=== PATIENT | male | born 1960 | race Caucasian/White ===

== ENCOUNTER 2021-11-17 21:02 | Emergency (ER) | payer OTHER, MEDICARE ==
[~2021-11-17 21:02] MED LIST: APIX5TAB3 PO; ASPI81TA52 PO; HYDR-3965 PO
== END 2021-11-17 22:02 | disposition left against medical advice (07) ==
LOC: ER 21:03
DX: Z53.21 Procedure and treatment not carried out due to patient leaving prior to being seen by health care provider (principal)

== ENCOUNTER 2021-11-25 08:23 | Inpatient (IN) | payer OTHER ==
[~2021-11-25] VITALS: Ht 124.5 cm; Wt 81.6 kg
[2021-11-25] VITALS (13 sets, daily range): BP systolic 101–169; BP diastolic 52–88
[~2021-11-25 08:23] MED LIST changes: -APIX5TAB3 PO; +APIX5TAB5 PO; -ASPI81TA52 PO; -HYDR-3965 PO; +cefazolin/dext.iso 2gm/50ml IV ONE; +famotidine 20mg tablet PO ONE; +ringers solution, lacted 1,000 ML IV SCH
[2021-11-25 10:23] LABS: BASOPHILS # (AUTO) 0.1 X10'3 (0-0.2); EOSINOPHILS # (AUTO) 0.2 X10'3 (0-0.9); MEAN CORPUSCULAR VOLUME 81.8 FL (78-98); MONOCYTES # (AUTO) 0.8 X10'3 (0-0.9); NEUTROPHILS # (AUTO) 5.4 X10'3 (1.8-7.7)
[2021-11-25 10:24] LABS: BASOPHILS % (AUTO) 1.2 % (0-1); EOSINOPHILS % (AUTO) 2.9 % (0-6); LYMPHOCYTES # (AUTO) 1.5 X10'3 (1.1-4.8); LYMPHOCYTES % (AUTO) 18.8 % (21-51); MEAN CORPUSCULAR HEMOGLOBIN 26.1 PG (27.0-31.0); MEAN CORPUSCULAR HGB CONC 31.9 g/dL (33.0-36.5); MEAN PLATELET VOLUME 6.9 FL (7.4-10.4); MONOCYTES % (AUTO) 9.5 % (2-12); NEUTROPHILS % (AUTO) 67.6 % (42-75); PRE OP PLATELET COUNT 796 X10'3 (140-440); RED BLOOD COUNT 3.67 X10'6 (4.70-6.10); RED CELL DISTRIBUTION WIDTH 17.6 % (11.5-14.5)
[2021-11-25 10:27] LABS: PRE OP HEMOGLOBIN 9.6 g/dL (14.0-17.9)
[2021-11-25 10:36] LABS: PRE OP PROTIME 10.8 SECONDS (9.0-12.0)
[2021-11-25 10:46] LABS: ALBUMIN 3.1 G/DL (3.4-5.0); ALBUMIN/GLOBULIN RATIO 0.7 (1.1-1.5); ALKALINE PHOSPHATASE 113 IU/L (46-116); BLOOD UREA NITROGEN 15 MG/DL (7-18); BUN/CREATININE RATIO 27.8 (5.4-32.0); CALCIUM 8.8 MG/DL (8.5-10.1); CHLORIDE 105 MMOL/L (99-107); CREATININE 0.54 MG/DL (0.60-1.10); PRE OP ALT 19 U/L (30-65); PRE OP ANION GAP 8 (8-16); PRE OP AST 12 U/L (10-37); PRE OP BILIRUB, TOTAL 0.3 MG/DL (0.0-1.0); PRE OP GLUCOSE 95 MG/DL (70-104); PRE OP POTASSIUM 4.7 MMOL/L (3.4-5.1); PRE OP SODIUM 141 MMOL/L (135-145); TOTAL CARBON DIOXIDE 27.7 MMOL/L (24-32); TOTAL PROTEIN 7.4 G/DL (6.4-8.2); eGFR > 90 ML/MIN
[2021-11-25] MEDS ORDERED: morphine 4 MG/ML inj SYRINge IV PRN (15:35)
[2021-11-25] MEDS ORDERED: hydrALAZINE 20mg/ml inj. IV PRN (15:35)
[2021-11-25] MEDS ORDERED: labetalol 20mg/4ml (5mg/ml) syringe IV PRN (15:35)
[2021-11-25] MEDS ORDERED: morphine 2 MG/ML inj. syringe IV PRN (15:35)
[2021-11-25] MEDS ORDERED: ondansetron/PF 4mg/2ml inj IV PRN (15:35)
[2021-11-25] MEDS ORDERED: ringers solution, lacted 1,000 ML IV SCH (15:35)
[2021-11-25] MEDS ORDERED: fentaNYL/PF 50MCG/1 ML 2ML syringe IV PRN ×2 (15:35)
--- NOTE | 2021-11-25 17:11 | NUR ---
Received from OR via [facility] , accompanied by Anesthesiologist DR. HERNÁNDEZ and report given by Anesthesiolgist. 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
--- NOTE | 2021-11-25 17:34 | NUR ---
Patient in room PAS IN 901. I have received report from Neisha BEALacute care clinical nurse specialist and had the opportunity to ask questions and assume patient care.
--- NOTE | 2021-11-25 17:41 | NUR ---
Report called to receiving nurse.GUILHERME BEAL Transferred via [facility] TO SURGICAL Belong[facility] . Special Issues communicated to receiving nurse. GAVE REORT TO NURSE. ANNA. PATIENT MEETS DISCHARGE CRITERIA. Addendum: 11/25/21 at 1752 by Neisha Portillo RN Amended: Links added.
--- NOTE | 2021-11-25 18:26 | NUR ---
Problems reprioritized. Patient report given, questions answered & plan of care reviewed with Amalia BEAL traveler.
[2021-11-26] VITALS: BP 109/59
[2021-11-26 04:00] VITALS: BP 112/57
[2021-11-26 07:00] VITALS: BP 100/56
[2021-11-26] MEDS ORDERED: HYDROcodone/acetaminophen 10/325mg tab PO PRN (09:10)
--- NOTE | 2021-11-26 12:02 | NUR ---
MD made aware that pt. is tachycardic at 105 and temp of 99.2 aux. Surgeon want atb. ordered. [facility] until he can further assess if pt. will get his appropriate meds.
--- NOTE | 2021-11-26 12:17 | NUR ---
Call from surgical unit charge nurse Heaven who is requesting per Dr Benjie hardy the NPWT dressing to the patient's R BKA site be changed as he is in house now. Arrived in the room and pt is agreeable to the dressing change and NPWT turned off, removed one black foam, wound bed is 95% red granulation tissue, wound edges are attached and no sx of infection noted. Wound cleansed then trip draped then placed one black foam, seal achieved @ 125 mmhg low continuous suction alarm on audible, canister change done, he tolerated well. He is going to be discharge today and will f/u in the [facility] wound clinic. He has a stump sock to his left AKA site there is noted to be strike through drainage that is dry, pt is c/o of some continued pain to the site and was previously medicated by primary nurse. Educated him on f/u w/ HH as well as to keep appt that will be made for him for outpatient wound clinic as well as s sx of infection and how to contact [facility] after hours.
--- NOTE | 2021-11-26 14:39 | NUR ---
DISCHARGE NOTE: Discussed discharge paperwork with pt. IV DC'd, cannula intact, no s/sx bleeding noted. Discussed f/u care with PCP, and surgeon, and wound care. Pt. provided with contact information. Wound care clinic appointment set up at 1030 on Tuesday. Medications and possible ASE discussed with pt. Spoke with Benjie while rounding on floor and he states his office called in an antibiotic and pain management medication. Pt. aware[facility] Pt. supplied with 3 days of wound care supplies and then verified with CM that pt will have wound care and home health. Pt. gathered all of his belongings and dressed himself. His is here. Pt. L stump redressed by primary RN and new stump sock provided and wound care changed wound vac dressing.
== END 2021-11-26 13:55 | disposition home or self-care (01) | DRG 498 ==
LOC: PAS IN 08:23 → SUR 3N 19:15
PROVIDERS: ADMIT Surgery; ATTEND Surgery
PROC: 0QB70ZZ Excision of Left Upper Femur, Open Approach (ICD-10-PCS; principal; 2021-11-25 15:37)
DX: Z47.81 Encounter for orthopedic aftercare following surgical amputation (principal); G82.20 Paraplegia, unspecified; E78.5 Hyperlipidemia, unspecified; Z88.8 Allergy status to other drugs, medicaments and biological substances
CPT/HCPCS: 36415; 80053; 85025; 85610; 85730; 87635; 93005; A4618; A6222; A6253; A6449; A7000; G0378; J0690; J7120

== ENCOUNTER 2022-01-25 11:19 | Emergency (ER) | payer OTHER, MEDICARE ==
[~2022-01-25] VITALS: Ht 177.8 cm; Wt 77.3 kg
[~2022-01-25 11:19] MED LIST changes: +APIX5TAB3 PO; +FERR142T13 PO; -cefazolin/dext.iso 2gm/50ml IV ONE; -famotidine 20mg tablet PO ONE; -ringers solution, lacted 1,000 ML IV SCH
[2022-01-25 11:35] VITALS: BP 147/87
[2022-01-26] MEDS ORDERED: MULT-1085 PO (10:29)
[2022-01-26] MEDS ORDERED: ASCO-134 PO (10:29)
[2022-01-26] MEDS ORDERED: APIX5TAB3 PO (10:29)
[2022-01-26] MEDS ORDERED: DOCU100C40 PO (10:29)
[2022-01-28] MEDS ORDERED: LINE600T11 PO (09:20)
== END 2022-01-25 15:43 | disposition home or self-care (01) ==
LOC: ER 11:20
DX: T81.49XA Infection following a procedure, other surgical site, initial encounter (principal); M00.9 Pyogenic arthritis, unspecified; E78.00 Pure hypercholesterolemia, unspecified; Z86.718 Personal history of other venous thrombosis and embolism; Z88.8 Allergy status to other drugs, medicaments and biological substances; Z79.899 Other long term (current) drug therapy; Z88.2 Allergy status to sulfonamides; Y83.8 Other surgical procedures as the cause of abnormal reaction of the patient, or of later complication, without mention of misadventure at the time of the procedure; Y92.89 Other specified places as the place of occurrence of the external cause
CPT/HCPCS: 99281

== ENCOUNTER 2022-05-30 21:56 | Emergency (ER) | payer OTHER, MEDICARE ==
[~2022-05-30] VITALS: Ht 177.8 cm; Wt 79.5 kg
[~2022-05-30 21:56] MED LIST changes: -APIX5TAB5 PO; +ASCO-134 PO; +DOCU100C40 PO; -FERR142T13 PO; +MULT-1085 PO
[2022-05-30 22:45] LABS: ALANINE AMINOTRANSFERASE 20 U/L (12-78); ALBUMIN 3.1 G/DL (3.4-5.0); ALBUMIN/GLOBULIN RATIO 0.8 (1.1-1.5); ALKALINE PHOSPHATASE 89 IU/L (46-116); ANION GAP 11 (8-16); ASPARTATE AMINO TRANSFERASE 16 U/L (10-37); BILIRUBIN,TOTAL 0.6 MG/DL (0.1-1.0); BLOOD UREA NITROGEN 14 MG/DL (7-18); CALCIUM 8.6 MG/DL (8.5-10.1); CHLORIDE 104 MMOL/L (99-107); CREATININE 0.61 MG/DL (0.60-1.10); GLUCOSE 105 MG/DL (70-104); POTASSIUM 3.6 MMOL/L (3.5-5.1); SODIUM 138 MMOL/L (135-145); TOTAL CARBON DIOXIDE 23.1 MMOL/L (24-32); TOTAL PROTEIN 7.1 G/DL (6.4-8.2); eGFR > 90 ML/MIN
[2022-05-30 22:46] LABS: CLARITY,URINE CLEAR (Clear); GLUCOSE, URINE NEGATIVE (Neg); KETONES,URINE NEGATIVE (Neg); LEUKOCYTE ESTERASE ,URINE TRACE (Neg); NITRITES, URINE NEGATIVE (Neg); OCCULT BLOOD,URINE NEGATIVE (Neg); PROTEIN,URINE NEGATIVE (Neg); UROBILINOGEN,URINE 0.2 E.U/dL (0.2-1.0)
[2022-05-30 22:47] LABS: BASOPHILS % (AUTO) 0.4 % (0-1); EOSINOPHILS % (AUTO) 0.2 % (0-6); HEMOGLOBIN 12.8 g/dl (14.0-17.9); LYMPHOCYTES # (AUTO) 0.8 X10'3 (1.1-4.8); LYMPHOCYTES % (AUTO) 8.8 % (21-51); MEAN CORPUSCULAR HEMOGLOBIN 26.6 PG (27.0-31.0); MEAN CORPUSCULAR HGB CONC 32.7 g/dL (33.0-36.5); MEAN CORPUSCULAR VOLUME 81.3 FL (78-98); MEAN PLATELET VOLUME 8.5 FL (7.4-10.4); MONOCYTES # (AUTO) 0.6 X10'3 (0-0.9); MONOCYTES % (AUTO) 6.5 % (2-12); NEUTROPHILS # (AUTO) 7.8 X10'3 (1.8-7.7); NEUTROPHILS % (AUTO) 84.1 % (42-75); PLATELET COUNT 317 X10'3 (140-440); RED CELL DISTRIBUTION WIDTH 21.8 % (11.5-14.5); WHITE BLOOD COUNT 9.3 X10'3 (4.5-11.0)
[2022-05-30 22:51] LABS: COLOR,URINE STRAW (Yellow); UA COLLECTION TYPE FOLEY CATH
[2022-05-30 22:57] LABS: BACTERIA,URINE 1+ /HPF (Neg); MUCUS STRANDS NONE SEEN /LPF (Neg); RBC,URINE 0-2 /HPF (0-2); SQUAMOUS EPITHELIAL CELL,UR FEW /LPF (FEW); WBC,URINE 0-4 /HPF (0-4)
[2022-05-31 00:06] LABS: C-REACTIVE PROTEIN 2.82 MG/DL (0.0-0.5)
[2022-05-31] MEDS ORDERED: clindamycin 600mg/D5W 50ml 50 ML IV ONE (01:35)
[2022-05-31] MEDS ORDERED: ketorolac trometh. 30mg/ml inj. IV ONE (01:40)
[2022-05-31] MEDS ORDERED: acetaminophen 325mg tablet PO ONE (01:40)
[2022-05-31] MEDS ORDERED: CLIN150C8 PO (01:40)
[2022-05-31 02:36] VITALS: BP 129/78
== END 2022-05-31 04:00 | disposition home or self-care (01) ==
LOC: ER 21:57
DX: R50.9 Fever, unspecified (principal); Z20.822 Contact with and (suspected) exposure to COVID-19; R10.30 Lower abdominal pain, unspecified; E78.00 Pure hypercholesterolemia, unspecified; F17.200 Nicotine dependence, unspecified, uncomplicated; Z87.11 Personal history of peptic ulcer disease; Z85.9 Personal history of malignant neoplasm, unspecified; Z98.890 Other specified postprocedural states; Z88.1 Allergy status to other antibiotic agents; Z88.8 Allergy status to other drugs, medicaments and biological substances; Z79.2 Long term (current) use of antibiotics; Z79.899 Other long term (current) drug therapy
CPT/HCPCS: 36415; 71045; 73551; 80053; 81001; 83605; 84145; 85025; 86140; 87040; 87077; 87088; 87186; 87635; 96365; 96375; 99285; C9803; J1885; J3490

== ENCOUNTER 2025-07-12 22:48 | Emergency (ER) | payer OTHER, MEDICARE ==
[~2025-07-12] VITALS: Ht 111.8 cm; Wt 81.8 kg
[~2025-07-12 22:48] MED LIST changes: +CLIN-214 PO
[2025-07-12 22:55] VITALS: TEMP 98.6
--- NOTE | 2025-07-12 23:34 | Physician Documentation ---
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 The patient states pain was 8/10 sharp left-sided it has improved since he has been in the emergency room he states it is only slight on the left side now. He denies any fevers or chills. He denies any nausea vomiting or diarrhea. Patient has an AKA on the left and a BKA on the right. The the patient has a left-sided lower abdominal colostomy. Patient has a history of kidney stones Medication Reconciliation Allergies: Coded Allergies: sulfamethoxazole (Unverified Allergy, Unknown, 05/30/22) trimethoprim (Unverified Allergy, Unknown, 05/30/22) Uncoded Allergies: turnips (Allergy, Severe, 11/06/21) Scheduled Apixaban (Eliquis), 1 TAB PO Q12H, (Reported) Ascorbic Acid (Ascorbic Acid), 1 TAB PO BID, (Reported) Cefpodoxime Proxetil (Vantin), 1 TAB PO Q12H Clindamycin HCl (Clindamycin HCl CAPSULE), 1 CAP PO QID Docusate Sodium (Docusate Sodium), 1 CAP PO Q12H, (Reported) Multivitamin (Multi Vitamin Daily), 1 TAB PO DAILY, (Reported) Past Medical History Past Medical History: *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 GENERAL: Alert, no apparent distress. HEENT: Normocephalic, atraumatic, PERRL, EOMI, dry mucosa, no erythema RESPIRATORY: Lungs clear, normal breath sounds, no respiratory distress. CHEST: No accessory muscle use, no retractions CV: Regular rate, rhythm, no edema, no murmur, No: JVD GI: Soft, non-tender, bowels sounds present, no rebound, guarding, or rigidity BACK: No CVA tenderness, or swelling MUSCULOSKELETAL: Left-sided AKA right-sided BKA SKIN: Warm and dry, no rash NEURO: Oriented x4, No motor or sensory deficit PSYCH: Normal mood and affect, no agitation Progress Results/Orders Results/Orders Orders - ELADIO ORTIZ MD Ct Abdomen Pelvis (07/13/25 01:30) Cult Urine + [place] Ct (07/13/25 01:52) Completed Orders - ELADIO ORTIZ MD Cbc/Diff (07/12/25 23:07) BMP (07/12/25 23:07) Lipase (07/12/25 23:07) CMP (07/12/25 23:07) Procalcitonin (07/12/25 23:36) Normal Saline 1000ml (0.9% Sodium Chlori (07/12/25 23:40) Ct Abdomen Pelvis (07/13/25 01:30) Acetaminophen 1,000mg/100ml Iv (Ofirmev (07/13/25 01:40) Ua W/Microscopic, Cult If Ind (07/13/25 01:10) Ceftriaxone 2gm/D5w 50ml Bag (Rocephin 2 (07/13/25 02:25) Vital Signs 07/12/25 07/12/25 07/12/25 07/13/25 22:55 23:04 23:06 00:37 Temp 98.6 Pulse 98 93 78 Resp 26 16 16 15 B/P (MAP) 157/102 157/102 (120) 138/85 (102) Pulse Ox 98 99 96 O2 Flow Rate 0 0 07/13/25 07/13/25 07/13/25 01:16 02:20 03:47 Pulse 82 77 86 Resp 16 16 16 B/P (MAP) 150/91 (110) 139/98 (112) 153/80 Pulse Ox 96 95 97 O2 Flow Rate 0 0 Laboratory Tests Test 07/12/25 23:41 07/12/25 23:43 07/13/25 01:10 White Blood Count 14.5 H Red Blood Count 4.94 Hemoglobin 14.7 Hematocrit 43.9 Mean Corpuscular Volume 89.0 Mean Corpuscular Hemoglobin 29.8 Mean Corpuscular Hemoglobin Concent 33.4 Red Cell Distribution Width 14.9 H Platelet Count 321 Mean Platelet Volume 8.2 Neutrophils (%) (Auto) 76.8 H Lymphocytes (%) (Auto) 8.9 L Monocytes (%) (Auto) 13.6 H Eosinophils (%) (Auto) 0.1 Basophils (%) (Auto) 0.6 Neutrophils # (Auto) 11.2 H Lymphocytes # (Auto) 1.3 Monocytes # (Auto) 2.0 H Eosinophils # (Auto) 0.0 Basophils # (Auto) 0.1 CBC Comment Sodium Level 136 Potassium Level 3.6 Chloride Level 104 Carbon Dioxide Level 24.6 Anion Gap 7 L Blood Urea Nitrogen 14 Creatinine 0.61 Estimated GFR/1.73 m2 > 90 BUN/Creatinine Ratio 23.0 H Glucose Level 112 H Calcium Level 8.8 Total Bilirubin 1.0 Aspartate Amino Transf (AST/SGOT) 12 Alanine Aminotransferase (ALT/SGPT) 11 L Alkaline Phosphatase 94 Total Protein 8.0 Albumin 3.3 L Globulin 4.7 H Albumin/Globulin Ratio 0.7 L Lipase 21 Chemistry Comments Procalcitonin < 0.05 Urine Specimen Description Non-specified Urine Color Yellow Urine Clarity Clear Urine pH 5.5 Urine Specific [place] 1.025 Urine Protein Negative Urine Glucose (UA) Negative Urine Ketones Trace H Urine Occult Blood Trace-intact Urine Nitrite Positive H Urine Bilirubin Negative Urine Urobilinogen 0.2 Urine Leukocyte Esterase Trace H Urine RBC 0-2 Urine WBC 30-50 H Urine Squamous Epithelial Cells Few Urine Bacteria 4+ Urine Mucus Few Urine Culture Indicated Indicated Volume Urine Centrifuged 10 ml Urine Comment Microbiology Date/Time Source Procedure Growth Status 07/13/25 01:52 Urine Nonspecified Urine Culture - Preliminary Gram Negative Bereket Gram Positive Cocci Resulted Medical Decision Making Additional information obtaine: old records Findings Patient is a 65-year-old male who is complaining of flank pain, the patient does appear to have a urinary tract infection. The patient's CT imaging was unremarkable. The patient's clinical exam was fairly unimpressive he is not significantly tender. The patient is well-appearing vital signs were stable. The patient's pulse oximetry was interpreted as normal and adequate. The patient was treated with IV antibiotics and will be discharged on antibiotics. Differential Diagnosis Pyelonephritis, UTI, renal colic, colitis, diverticulitis Departure Disposition: HOME / SELF CARE / HOMELESS Impression: Primary Impression: Acute urinary tract infection Additional Impression: Low back pain Qualified Codes: M54.50 - Low back pain, unspecified Discharge Instructions: Urinary Tract Infection, Adult Referrals: NO PRIMARY CARE PROVIDER (PCP) Prescriptions Cefpodoxime Proxetil (Vantin) 200 Mg Tablet 1 TAB PO Q12H for 7 Days, #28 TAB Prov: ELADIO ORTIZ MD 07/13/25 Signature Scribe Signature: No scribe Attestation: The note accurately reflects work and decisions made by me.Elaido Ortiz MD 07/15/25 07:43 ELADIO ORTIZ MD Jul 12, 2025 23:34
[2025-07-13] MEDS: normal saline 1000ML IV soln IVB ONE (00:02)
[2025-07-13 00:12] LABS: MEAN PLATELET VOLUME 8.2 FL (7.4-10.4); RED CELL DISTRIBUTION WIDTH 14.9 % (11.5-14.5)
[2025-07-13 00:24] LABS: CREATININE 0.61 MG/DL (0.60-1.10); TOTAL CARBON DIOXIDE 24.6 MMOL/L (24-32); eGFR > 90 ML/MIN
[2025-07-13] MEDS: acetaminophen 1,000mg/100ml IV 100 ML IV ONE (01:42)
[2025-07-13 01:44] LABS: LEUKOCYTE ESTERASE ,URINE TRACE (Neg); NITRITES, URINE POSITIVE (Neg); OCCULT BLOOD,URINE TRACE-INTACT (Neg)
[2025-07-13 01:50] LABS: UA COLLECTION TYPE NON-SPECIFIED
[2025-07-13 01:51] LABS: MUCUS STRANDS FEW /LPF (Neg); SQUAMOUS EPITHELIAL CELL,UR FEW /LPF (FEW)
--- NOTE | 2025-07-13 01:51 | RADIOLOGY REPORT ---
Exam: CT CT ABDOMEN PELVIS History: abdominal pain COMPARISON: None Technique: Multidetector spiral CT of the abdomen and pelvis was performed from lung bases to pubic symphysis. Axial, coronal and sagittal multiplanar reformats were performed by the technologist on a separate workstation. Radiation Dose : 1. Abdomen/Pelvis: CTDIvol 29.7 mGy, DLP 1629.16 mGy*cm. Findings: Lung Bases: Streaky opacity at both lung bases. Liver: The liver is normal in size. No focal lesions. Normal hepatic vascular enhancement. Gallbladder and Biliary Tree: Unremarkable Spleen: Unremarkable Pancreas: The pancreas is normal in appearance without focal lesions or abnormal enhancement. Adrenal Glands: Unremarkable Kidneys: No hydronephrosis. Bladder: Unremarkable Bowel: Left lower quadrant colostomy. No obstruction. No peristomal hernia. Ascites: Absent Lymphadenopathy: No mesenteric, retroperitoneal or periportal lymphadenopathy. Abdominal Wall and Mesentery: Unremarkable. Vasculature: The visualized abdominal aorta is normal in size and caliber. Abdominal and pelvic vessels demonstrate normal enhancement. Pelvic Organs: Unremarkable Musculoskeletal: No aggressive focal bony lesions, acute fractures or dislocation. IMPRESSION: No acute abdominal or pelvic findings. Radiation optimization: All CT scans at this facility use at least one of these dose optimization techniques: automated exposure control mA and/or kV adjustment per patient size (includes targeted exams where dose is matched to clinical indication) or iterative reconstruction.
[2025-07-13] MEDS: CefTRIAXone 2gm/D5W 50ml BAG 50 ML IV ONE (02:41)
[2025-07-13] MEDS ORDERED: CEFP200T13 PO (02:56)
[2025-07-13 03:47] VITALS: BP 153/80; PULSE 86; RESP 16; O2SAT 97
== END 2025-07-13 03:30 | disposition home or self-care (01) ==
LOC: ER 22:49
DX: N39.0 Urinary tract infection, site not specified (principal); M54.50 Low back pain, unspecified; E78.00 Pure hypercholesterolemia, unspecified; Z87.11 Personal history of peptic ulcer disease; Z87.442 Personal history of urinary calculi; Z88.2 Allergy status to sulfonamides; Z88.8 Allergy status to other drugs, medicaments and biological substances; Z93.3 Colostomy status; Z89.612 Acquired absence of left leg above knee; Z89.511 Acquired absence of right leg below knee; Z79.899 Other long term (current) drug therapy; Z98.890 Other specified postprocedural states
CPT/HCPCS: 36415; 74176; 80053; 81001; 83690; 84145; 85025; 87088; 87186; 96361; 96365; 96367; 99285; J0131; J0696; J7030; 87077